=== PATIENT | female | born 1945 | race African-American/Black ===

== ENCOUNTER → 2018-07-05 | Outpatient (CLI) | payer OTHER ==
[~2018-07-05] VITALS: Ht 170.2 cm; Wt 90.3 kg
[~2018-07-05] MED LIST: AMLODIPINE BESY10 MG PO; CALCIUM 600 +1 EAC1 PO; CARVEDILOL12.5 MG PO; CO Q-10100 MG PO; GABAPENTIN 100100 MG PO; LOSARTAN-HCTZ1 EACH PO; NEURONTIN100 MG PO; NEXIUM 24HR20 M2 PO; NORCO 7.5-3251 EACH PO; SPIRONOLACTONE25 M1 PO; TURMERIC538 MG PO; VITAMIN D1000 UNI1 PO
--- NOTE | ~2018-07-05 | P ---
[facility] [place] [address] PROCEDURE REPORT Name: DAWN LITTLE [facility]: [facility] [id number] Admission: 07/05/18 ������������������ Attend Phys: Grabiel Yee Discharge: ������������������ Date of : 45 Report #: [id number] THIS REPORT FOR: //name// CC: Grabiel Alberts DATE OF SERVICE: 07/05/2018 PROCEDURE PERFORMED: Colonoscopy with biopsies. HISTORY OF PRESENT ILLNESS: The patient is a 73-year-old female, with a history of anemia, seen by myself in the office recently. Hemoccult testing was negative x 3 of her stool. Upper endoscopy was just performed today, which was normal other than a medium sized hiatal hernia. The patient does take Nexium on a daily basis for reflux. Biopsies were obtained to rule out celiac sprue. Her last colonoscopy was greater than 10 years ago. She denies any obvious blood in her stools. No family history of colon cancer. DESCRIPTION OF PROCEDURE: The risks and benefits of the procedure were explained to the patient, those risks including, but not limited to, bleeding, perforation and the risk of sedation. She understood these risks and gave informed consent. Sedation was given using propofol per anesthesia. Next, a digital rectal exam was initially performed, which was normal. Next, using a standard Olympus colonoscope, the scope was placed in the patient's anus and advanced under direct vision to the cecum. The overall prep was good. The cecum and ileocecal valve were normal in appearance. In the ascending colon, a 5 mm sessile polyp was noted. This was removed with cold forceps, otherwise normal. The transverse and descending colon were normal. Multiple diverticula were noted in the sigmoid colon, no evidence of inflammation. Another 4 mm sessile polyp also noted in the sigmoid colon, removed by cold forceps. The rectal mucosa was normal. On retroflexion, no abnormalities were noted. The scope was then withdrawn and the procedure terminated. The patient tolerated the procedure well. IMPRESSION: 1. Two small colonic polyps. 2. Sigmoid diverticulosis. 3. Otherwise, normal colonoscopy. RECOMMENDATIONS: 1. Await biopsy results. 2. If polyps are adenomatous polyps, repeat in 5 years; if hyperplastic, consider repeat colonoscopy in 10 years. 3. As far as the patient's anemia, no signs of bleeding or stigmata of bleeding on EGD and colonoscopy today. The patient also had a Hemoccult test in stools [address] [address] PROCEDURE REPORT Name: DAWN LITTLE Room #: REG CATHERINE Beckman#: [id number] Admission: 07/05/18 ������������������ Attend Phys: Grabiel Yee Discharge: ������������������ Date of : 45 Report #: [id number] that were x 3 negative recently. I would recommend oral iron therapy and monitoring hemoglobin. Okay to proceed with orthopedic hip surgery in the near future as there has been no evidence of GI bleed at this point. Thank you for allowing me to participate in her care. ��������������������������������������������� ���������������������������������������� By: ��������������������������������������������� 0932 0537 Grabiel Ordonez MD /nt
--- NOTE | ~2018-07-05 | P ---
[facility] [place] [address] PROCEDURE REPORT Name: DAWN LITTLE Room #: REG [facility] Karuna#: [id number] Admission: 07/05/18 ������������������ Attend Phys: Grabiel Yee Discharge: ������������������ Date of : 45 Report #: [id number] THIS REPORT FOR: //name// CC: Grabiel Alberts DATE OF SERVICE: 07/05/2018 PROCEDURE PERFORMED: Upper endoscopy with biopsies. HISTORY OF PRESENT ILLNESS: The patient is a 73-year-old female who was seen by myself in the office on 05/14/2018 for anemia. She is apparently preparing for possible right hip surgery for chronic pain, noted to be anemic. Labs on 04/09/2018 showed a hemoglobin of 9.6 with MCV of 93. She denies any obvious bright red blood per rectum. Her last colonoscopy was greater than 10 years ago, unsure of the findings at that time. No family history of colon cancer. She has a history of gastroesophageal reflux disease, takes Nexium on a daily basis. Denies any heartburn symptoms on the medication. Denies any dysphagia. At that time, we discussed proceeding with Hemoccult testing of her stools, which was performed and this was negative x 3. Plan is for EGD and colonoscopy today. DESCRIPTION OF PROCEDURE: The risks and benefits of the procedure were explained to the patient, those risks including, but not limited to, bleeding, perforation, the risk of sedation. She understood these risks and gave informed consent. Sedation was given using propofol per anesthesia. Next, using a standard Olympus upper endoscope, the scope was placed in the patient's mouth and advanced under direct vision through the esophagus, stomach and into the second portion of the duodenum. The larynx was normal in appearance. The esophagus was normal throughout. The GE junction was normal. Upon entering the stomach, a medium sized hiatal hernia was noted. Overall, the gastric mucosa was normal. The pylorus was normal and patent. The duodenal bulb, first and second portions were all normal. Because of her history of anemia, biopsies were obtained to rule out the possibility of celiac sprue. The scope was then withdrawn and the procedure terminated. The patient tolerated the procedure well. IMPRESSION: 1. Medium sized hiatal hernia. 2. Otherwise, normal upper endoscopy. RECOMMENDATIONS: 1. Await biopsy results. 2. We will proceed with colonoscopy next today. [address] [address] PROCEDURE REPORT Name: DAWN LITTLE Thomas Room #: REG CLGwendolyn Beckman#: [id number] Admission: 07/05/18 ������������������ Attend Phys: Grabiel Yee Discharge: ������������������ Date of : 45 Report #: [id number] Thank you for allowing me to participate in her care. ��������������������������������������������� ���������������������������������������� By: ��������������������������������������������� 0905 0021 Grabiel Ordonez MD /nt
--- NOTE | 2018-07-08 16:11 | PATH ---
[facility] [place] [address] PATHOLOGY RPT PROCEDURE Name: VERONICA LITTLE Room #: REG NAKITAGwendolyn Jaramillo.#: [id number] ������������������ Admission: 07/05/18 ������������������ Date of : 45 Discharge: Report #: [id number] Path Case #: [id number] [facility] Accession Number: [id number] . 01 Material submitted: . PART A: BX DUODENUM R/O SPRUE HX ANEMIA PART B: BX POLYP AT ASCENDING COLON PART C: BX POLYP AT SIGMOID COLON . 01 Clinical history: . Pre-OP DX: Anemia Post-OP DX: Hiatal hernia, colon polyps, diverticulosis, Hx anemia . 02 Diagnosis: A. Small bowel mucosa, duodenum, rule out sprue, endoscopic biopsy: - No diagnostic abnormalities. - Negative for villous blunting or increase in intraepithelial lymphocytes. . B. Polyp, at ascending colon, endoscopic biopsy: - Tubular adenoma. - Negative for high grade dysplasia. . C. Polyp, at sigmoid colon, endoscopic biopsy: - Tubular adenoma. - Negative for high grade dysplasia. . (IUV:mml; 07/08/2018) QLM/07/08/2018 . 02 Electronically signed: . Kerri Burk MD, Pathologist NPI- [id number] . 01 Gross description: . A. Received in formalin labeled "Veronica Little, YANNI duodenum, rule out sprue, Hx anemia," are 3 segments of caba soft tissue measuring 1.1 x 0.8 x 0.2 cm in aggregate dimensions and ranging from 0.4 to 0.5 cm in maximum dimension. The specimen is submitted entirely in cassette A1. . B. Received in formalin labeled "Veronica Little YANNI polyp at ascending colon," are 3 segments of caba soft tissue measuring 0.8 x 0.4 x 0.1 cm in aggregate dimensions and ranging from 0.3 to 0.4 cm in maximum dimension. The specimen is submitted entirely in cassette B1. . C. Received in formalin labeled "Veronica Little YANNI polyp at sigmoid colon," is a single segment of caba soft tissue measuring 0.3 cm in maximum [address] [address] PATHOLOGY RPT PROCEDURE Name: KIMBERLEE LITTLEDAVID Guzman [facility] #: [facility] [id number] ������������������ Admission: 07/05/18 ������������������ Date of : 45 Discharge: Report #: [id number] Path Case #: [id number] dimension. The specimen is entirely submitted in cassette C1. (TSD; 07/05/2018) TOB/TOB . 02 Pathologist provided ICD-10: D12.2, D12.5 . 02 CPT . 470285, 981978, 707796 Specimen Comment: A courtesy copy of this report has been sent to Specimen Comment: [phone], . Specimen Comment: Report sent to / DR FLORES Performed at: [address], [place] [id number] MD Rj Albright MD Phone: [phone] Performed at: [address] [id number] MD Kerri Burk MD Phone: [phone]
== END | disposition home or self-care (01) ==
LOC: GI 06:15
DX: D12.2 Benign neoplasm of ascending colon (principal); D12.5 Benign neoplasm of sigmoid colon; K57.30 Diverticulosis of large intestine without perforation or abscess without bleeding; K44.9 Diaphragmatic hernia without obstruction or gangrene; K21.9 Gastro-esophageal reflux disease without esophagitis; I10 Essential (primary) hypertension; J45.909 Unspecified asthma, uncomplicated; Z98.890 Other specified postprocedural states; Z79.899 Other long term (current) drug therapy
CPT/HCPCS: 62110; 62900